=== PATIENT | male | born 1995 | race Caucasian/White ===

== ENCOUNTER 2017-03-08 12:03 | Emergency (ER) | payer OTHER ==
[~2017-03-08] VITALS: Ht 193 cm; Wt 93.2 kg
[2017-03-08 12:09] VITALS: BP 142/82; TEMP 99.5
[2017-03-08] MEDS ORDERED: CEPHALEXIN500 M1 PO (13:24)
[2017-03-08 13:43] VITALS: PULSE 81
== END 2017-03-08 13:44 | disposition home or self-care (01) ==
LOC: COL.ER 12:03
DX: S62.306A Unspecified fracture of fifth metacarpal bone, right hand, initial encounter for closed fracture (principal); W23.0XXA Caught, crushed, jammed, or pinched between moving objects, initial encounter
CPT/HCPCS: J0690